=== PATIENT | male | born 2000 | race Asian ===

== ENCOUNTER 2019-11-14 21:31 | Emergency (ER) | payer OTHER ==
[~2019-11-14] VITALS: Ht 172.7 cm; Wt 71.4 kg
[2019-11-15] MEDS ORDERED: IBUPROFEN 600 MG TABLET PO ONE
[2019-11-15] MEDS ORDERED: METHOCARBAMOL 750 MG TABLET PO ONE
[2019-11-15 00:27] VITALS: BP 114/58
== END 2019-11-15 01:05 | disposition home or self-care (01) ==
LOC: EMS 21:31
DX: S13.9XXA Sprain of joints and ligaments of unspecified parts of neck, initial encounter (principal); S29.012A Strain of muscle and tendon of back wall of thorax, initial encounter; V49.49XA Driver injured in collision with other motor vehicles in traffic accident, initial encounter; Y93.89 Activity, other specified; Y92.488 Other paved roadways as the place of occurrence of the external cause; Y99.8 Other external cause status
CPT/HCPCS: 72040; 71045-TC